=== PATIENT | female | born 2005 | race Caucasian/White ===

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

== ENCOUNTER 2024-07-08 04:29 | Emergency (ER) | payer OTHER, SELFPAY ==
--- NOTE | ~2024-07-08 | US_ITS ---
CLINICAL HISTORY: 22 weeks with abdominal cramps no heart rate OB Ultrasound Transabdominal Comparison: None Findings: Estimated gestational age by today's ultrasound: 22 weeks and 4 days. Estimated date of delivery by today's ultrasound: 11/07/2024. Previously established gestational age: 22 weeks and 5 days. Biometrics: BPD: 22 weeks and 2 days HC: 22 weeks and 2 days AC: 23 weeks and 5 days FL: 21 weeks and 5 days EFW: 523 g, percentile 40th. Cardiac activity: 144 bpm. Placenta is anterior. No demonstrated evidence of previa or abruption. Closed cervix , normal in length. AVA: Grossly within normal limits. IMPRESSION: 1. Single intrauterine gestation estimated at 22 weeks and 4 days by today's ultrasound criteria. This document has been electronically signed by: Pawel Cano MD on 07/08/2024 06:26:46
[2024-07-08 04:44] VITALS: BP 124/85; PULSE 102; RESP 16; TEMP 36.8; O2SAT 99; BMI 36.1
[2024-07-08 04:49] VITALS: BP 124/85; PULSE 102; RESP 16; TEMP 36.8; O2SAT 98
--- NOTE | 2024-07-08 05:16 | ED_ITS ---
HPI - General Adult General Chief complaint: Back Pain/Injury Stated complaint: lower back pain, 22 wks Time Seen by Provider: 07/08/24 05:22 Source: patient and family Mode of arrival: ambulatory Limitations: no limitations History of Present Illness ED Provider: DR. Solitario HPI narrative: 18-year-old female about 22 weeks reportedly has on significant care at [facility], presented with 2 hours of intermittent back pain and feels cramps and tightness in her abdomen, no vaginal bleed, no nausea, no vomiting, no dysuria, no hematuria. Patient feels the baby is moving last today, unable to obtain heart rate in the ED. Related Data Allergies Allergy/AdvReac Type Severity Reaction Status Date / Time peanut Allergy Anaphylaxis Verified 07/08/24 04:47 Review of Systems 2 Review of Systems: All other systems are reviewed and are negative Constitutional: Reports as per HPI and Reports no additional constitutional complaints Eyes: Reports as per HPI and Reports no additional eye complaints Reports system reviewed and no additional complaints, except as documented Cardiovascular: Reports as per HPI and Reports no additional cardiovascular complaints Respiratory: Reports as per HPI and Reports no additional respiratory complaints Gastrointestinal: Reports as per HPI and Reports no additional gastrointestinal complaints Genitourinary: Reports no additional female genitourinary complaints Musculoskeletal: Reports no additional musculoskeletal complaints Skin/Breast: Reports system reviewed and no additional complaints, except as docu Psychiatric: Reports no additional psychiatric complaints Endocrine: Reports no additional endocrine complaints Hematologic/Lymphatic: Reports no additional hematologic/lymphatic complaints Allergic/Immunologic: Reports no additional allergic/immunologic complaints Reports system reviewed and no additional complaints, except as documented and Reports Abnormal speech present [facility] Social History Social History Smoked in Last 30 Days: No Use of substances other than those prescribed or required for medical reasons: No Advance Directives: No Advance Directives Information Provided: Yes Patient : Yes Physical Exam ED Vital Signs: Vital Signs - 24 hr 07/08/24 04:44 07/08/24 04:49 Temperature 98.3 F 98.3 F Pulse Rate 102 H 102 H Respiratory Rate 16 16 Blood Pressure 124/85 124/85 Pulse Oximetry 99 98 Oxygen Delivery Method Room Air Room Air BMI result Body Mass Index 36.1 Vital signs have been reviewed and appear to be correct. Blood pressure elevated. Heart rate normal. Respiratory rate normal. Temperature normal. Oxygen saturation normal. Appearance: Alert. Oriented X3. No acute distress. Head: Normal external exam. Normocephalic. Atraumatic. No Jane signs noted. No raccoon eyes noted Eyes: PERRLA. EOMI. Conjunctiva and sclera normal. Eyelids normal. ENT: TM's Normal. Pharynx normal. Uvula midline. Moist mucous membranes. No trismus noted. No drooling noted. No muffled voice noted. Neck: Normal inspection. Neck supple. FROM. No adenopathy. Thyroid Normal. No meningeal signs. No neck mass noted. CVS: Normal heart rate and rhythm. Heart sound normal. No murmurs noted. Pulses normal throughout. Respiratory: No respiratory distress. Painless inspiration. Breath sounds normal. No wheezes/rales/rhonchi noted. Chest nontender. No accessory muscle usage noted or decreased air movement noted. Abdomen: Soft and nontender. Bowel sounds normal in all 4 quadrants. No distention noted. No organomegaly noted. No visible injury noted. Pelvic exam: No vaginal bleeding, no cervical dilatation, patient will get pelvic ultrasound. Back: Bilateral CVA tenderness. Full range of motion noted. Skin: Skin warm and dry. Normal skin color. Normal skin turgor. No rashes/lesions/lacerations noted. Extremities: No lower extremity edema. Extremities exhibit normal range of motion. Extremities nontender. Neuro: Oriented X 3. Cranial nerve exam: II-XII are grossly intact No motor deficit. No sensory deficit. Reflexes normal. Course Reevaluation(s) Reevaluation #1: 18-year-old female 22 weeks follow at [facility] for her care, with bilateral pyelonephritis leukocytosis with a left shift, patient will receive 1st dose of ceftriaxone, the case was discussed with at [facility] at [facility] and accepted the patient. The patient will be transferred to [facility] for further management accepted by . Time: 06:21 Medications Administered Discontinued Medications Generic Name Dose Route Start Last Admin Trade Name Freq PRN Reason Stop Dose Admin Acetaminophen 650 mg 07/08/24 05:09 07/08/24 05:21 Acetaminophen 325 Mg Tablet PO 07/08/24 05:10 650 mg ONCE ONE Administration Medical Decision Making Differential Diagnosis Differential Diagnoses: The differential diagnosis associated with the presentation includes (UTI, pyelonephritis, ABO Rh incompatibility, demise.) Admission/Observation Consideration of admission/observation: Escalation of care including admission/observation considered Consult Healthcare Provider Management of the patient was discussed with: Veneer Sheet Repairer (Dr. Padilla at [facility].) Lab Data MDM Lab Attestation statement: I reviewed the patient's lab results. 07/08/24 05:22 07/08/24 05:21 Labs: Lab Results 07/08/24 07/08/24 Range/Units 05:21 05:22 WBC 15.2 H (4.8-10.8) X10*3/uL RBC 4.03 L (4.20-5.50) X10*6/uL Hgb 12.3 (12.0-16.0) g/dl Hct 34.4 L (37.0-47.0) % MCV 85.4 (80.0-98.0) fL MCH 30.5 (27.0-33.0) pg MCHC 35.8 H (31.0-35.0) g/dl RDW 12.3 (11.0-16.0) % Plt Count 175 (160-400) X10*3/uL MPV 11.4 (9.4-12.3) fL Immature Gran % (Auto) 1.1 H (0.0-0.4) % Neut % (Auto) 76.8 H (45-73) % Lymph % (Auto) 13.9 L (20-40) % Parke % (Auto) 6.6 (2-11) % Eos % (Auto) 1.3 (0-4) % Baso % (Auto) 0.3 (0-2) % Lymph # (Auto) 2.1 (1.2-4.9) X10*3/uL Parke # (Auto) 1.0 (0.1-1.2) X10*3/uL Eos # (Auto) 0.2 (0.0-0.4) X10*3/uL Baso # (Auto) 0.0 (0.0-0.2) X10*3/uL Abs Immat Gran (auto) 0.16 H (0.00-0.03) X10*3/uL Absolute Neuts (auto) 11.7 H (2.0-8.3) x10*3/uL Absolute Nucleated RBC 0.000 (0.0-0.012) X10*3/uL Nucleated RBC % (auto) 0.0 (0.0-0.2) /100WBC Sodium 136 (135-145) mmol/L Potassium 3.8 (3.3-5.1) mmol/L Chloride 108 (96-108) mmol/L Carbon Dioxide 19 L (22-29) mmol/L Anion Gap 13 (12-20) BUN < 3 L (9-16) mg/dL Creatinine 0.53 (0.5-1.4) mg/dL Estim Creat Clear Calc 143.9 Estimated GFR > 60 Random Glucose 98 (60-115) mg/dL Calcium 9.3 (8.4-10.2) mg/dL Beta HCG, Quant 39696 mIU/mL Urine Color Yellow Urine Appearance Clear Urine pH 7.0 (5.0-9.0) Ur Specific [place] 1.010 (1.005-1.025) Urine Protein 30 (1+) H (Neg-Trace) mg/dL Urine Glucose (UA) 100 H (Negative) mg/dL Urine Ketones Negative (Negative) mg/dL Urine Blood Moderate (2+) H (Negative) Urine Nitrite Negative (Negative) Ur Leukocyte Esterase Large (3+) H (Negative) Urine RBC 11-20 H (0-2) /HPF Urine WBC 21-50 H (0-5) /HPF Ur Squamous Epith Cells 0-2 (0-2) /HPF Urine Bacteria 1+ (None Seen) Hyaline Casts 0-2 (0-2) /LPF Independent Interpretation I performed an independent interpretation of an: Ultrasound (1. Single intrauterine gestation estimated at 22 weeks and 4 days by today's ultrasound criteria.) Radiology Impression Discussion of test interpretation with radiology: I have reviewed the radiologist's reading. Discharge Plan Discharge Clinical Impression: Pyelonephritis, Second trimester , Back pain Patient Disposition: General Acute Hospital Transfer Details: [facility]. Print Language: Swedish
[2024-07-08] MEDS: Acetaminophen 325 MG TABLET 650 MG PO (05:21)
--- NOTE | 2024-07-08 05:23 | MHC.EDTECH ---
Urine sample,labs and RH drawn and sent to lab, applied blood band to right wrist
[2024-07-08 05:29] LABS: MANUAL DIFF FLAG NO
[2024-07-08 05:30] LABS: Basophils Percent Auto 0.3 % (0-2); Eosinophils Absolute Auto 0.2 X10*3/uL (0.0-0.4); Eosinophils Percent Auto 1.3 % (0-4); Hematocrit 34.4 % (37.0-47.0); Hemoglobin 12.3 g/dl (12.0-16.0); Imm Gran Abs Auto 0.16 X10*3/uL (0.00-0.03); Imm Gran Pct Auto 1.1 % (0.0-0.4); Lymphocytes Absolute Auto 2.1 X10*3/uL (1.2-4.9); Lymphocytes Percent Auto 13.9 % (20-40); Mean Corpuscular HGB Conc 35.8 g/dl (31.0-35.0); Mean Corpuscular Hemoglobin 30.5 pg (27.0-33.0); Mean Corpuscular Volume 85.4 fL (80.0-98.0); Mean Platelet Volume 11.4 fL (9.4-12.3); Monocytes Percent Auto 6.6 % (2-11); Neutrophils Absolute Auto 11.7 x10*3/uL (2.0-8.3); Neutrophils Percent Auto 76.8 % (45-73); Platelet Count 175 X10*3/uL (160-400); Red Blood Count 4.03 X10*6/uL (4.20-5.50); Red Cell Distribution Width 12.3 % (11.0-16.0); White Blood Count 15.2 X10*3/uL (4.8-10.8)
[2024-07-08 05:31] LABS: Appearance Urine Clear; Color Urine Yellow; Glucose Urine UA 100 mg/dL (Negative); Leukocyte Esterase Urine Large (3+) (Negative); Nitrite Urine Negative (Negative); UMIC TRIGGER UACC YES; Urine Blood Moderate (2+) (Negative); Urine Ketones Negative (Negative); Urine Protein 30 (1+) mg/dL (Neg-Trace)
[2024-07-08 05:56] LABS: Anion Gap 13 (12-20); Blood Urea Nitrogen < 3 mg/dL (9-16); Calcium 9.3 mg/dL (8.4-10.2); Carbon Dioxide 19 mmol/L (22-29); Chloride 108 mmol/L (96-108); Creatinine Clr Calc Pharmacy 143.9; Estimated Glomerular Filt Rate > 60; Glucose Random 98 mg/dL (60-115); Potassium 3.8 mmol/L (3.3-5.1); Sodium 136 mmol/L (135-145)
[2024-07-08 06:02] LABS: Bacteria Urine 1+ (None Seen); Hyaline Casts Urine 0-2 /LPF (0-2); Squamous Epithelial Cell Urine 0-2 /HPF (0-2); UACC Culture Trigger YES; WBC Urine 21-50 /HPF (0-5)
[2024-07-08 06:15] LABS: HCG Quantitative 32567 mIU/mL
[2024-07-08] MEDS: cefTRIAXone sodium 1 GM VIAL IVPUSH (06:31)
--- NOTE | 2024-07-08 06:44 | PC.NURSE ---
Addendum entered by Raina Gregg RN 07/08/24 06:52: Called nurse to nurse report, spoke with Liz AMADO from [facility]. Original Note: pt 18 yo female from home with complaint of intermittent lower back pain. Pt is 22 weeks and states along with the back pain she is also experiencing stomach cramping/tightness and the baby moving less than usual. Pt states this is her fourth and she has no living children.Pt denies any vaginal bleeding, nausea, vomiting, dysuria, and hematuria. Pt is a&o x4 speaking in full clear sentences and ambulates with steady gait. Pt is being transferred to [facility] for further care of pyelonephritis. Pt has 20G IV in LAC and has received 1st dose of ceftriaxone.
[2024-07-08 07:10] VITALS: BP 112/76; PULSE 93; RESP 20; TEMP 36.8; O2SAT 99
== END 2024-07-08 08:03 | disposition short-term general hospital (02) ==
PROVIDERS: Emergency Provider Emergency Medicine; PCP Pediatrics
DX: O23.02 Infections of kidney in pregnancy, second trimester (principal); B95.4 Other streptococcus as the cause of diseases classified elsewhere; Z3A.22 22 weeks gestation of pregnancy
CPT/HCPCS: 36415; 76815; 80048; 81001; 81003; 84702; 85025; 86900; 86901; 87086; 87088; 96374; 99284; 99285; J0696

== ENCOUNTER → 2024-07-08 05:14 | Outpatient (BNV) | payer OTHER, SELFPAY | PROVIDERS: Emergency Provider Emergency Medicine; PCP Pediatrics; Visit Provider Radiology Vascular & Interventional Radiology | DX: O26.892 Other specified pregnancy related conditions, second trimester (principal); R10.9 Unspecified abdominal pain; Z3A.22 22 weeks gestation of pregnancy | CPT/HCPCS: 76815 ==

== ENCOUNTER 2024-09-15 00:11 | Emergency (ER) | payer OTHER, SELFPAY ==
[2024-09-15 00:14] VITALS: BP 137/75; PULSE 111; RESP 18; TEMP 36.8; O2SAT 98; BMI 38.8
[2024-09-15 00:30] LABS: Hematocrit 33.5 % (37.0-47.0); Hemoglobin 11.9 g/dl (12.0-16.0); Mean Corpuscular HGB Conc 35.5 g/dl (31.0-35.0); Mean Corpuscular Hemoglobin 29.9 pg (27.0-33.0); Mean Corpuscular Volume 84.2 fL (80.0-98.0); Mean Platelet Volume 11.9 fL (9.4-12.3); Platelet Count 169 X10*3/uL (160-400); Red Blood Count 3.98 X10*6/uL (4.20-5.50); White Blood Count 11.1 X10*3/uL (4.8-10.8)
[2024-09-15 00:47] LABS: Alanine Aminotransferase 19 U/L (0-31); Albumin Level 3.8 g/dL (3.5-5.0); Alkaline Phosphatase 150 U/L (39-117); Anion Gap 15 (12-20); Aspartate Amino Transferase 27 U/L (5-31); Bilirubin Total 0.3 mg/dL (0.0-1.0); Blood Urea Nitrogen 3 mg/dL (9-16); Calcium 9.4 mg/dL (8.4-10.2); Carbon Dioxide 19 mmol/L (22-29); Chloride 108 mmol/L (96-108); Creatinine Clr Calc Pharmacy 144.7; Estimated Glomerular Filt Rate > 60; Glucose Random 94 mg/dL (60-115); Potassium 3.6 mmol/L (3.3-5.1); Sodium 138 mmol/L (135-145); Total Protein 6.8 g/dL (6.5-8.0)
[2024-09-15 01:41] VITALS: BP 113/76; PULSE 100; RESP 16; TEMP 36.7; O2SAT 98
[2024-09-15] MEDS: ondansetron HCL 4 MG/2 ML VIAL IVPUSH (02:09)
[2024-09-15] MEDS: 0.9 % Sodium Chloride 1,000 ML 999 ML IV (02:09)
[2024-09-15] MEDS: Sucralfate Oral Suspension 1 GM/10 ML ORAL.SUSP PO (02:09)
--- NOTE | 2024-09-15 02:19 | PC.NURSE ---
RN placed a line in pts Right AC #20. pt medicated per mar orders.
[2024-09-15 02:34] LABS: HCG Quantitative 16334 mIU/mL
--- NOTE | 2024-09-15 03:47 | ED_ITS ---
HPI - General Adult General Chief complaint: Nausea/Vomiting/Diarrhea Stated complaint: vomiting Time Seen by Provider: 09/15/24 01:41 Source: patient Limitations: no limitations History of Present Illness ED Provider: Lakshmi Landaverde PA-C HPI narrative: 18-year-old female who is currently 32 weeks , presents with epigastric discomfort. Patient states she was seen by nurse staff industrial today, she was feeling pressure in her lower abdomen. She was assessed at [facility], she was safely discharged and we will be following up with them 09/19. Patient states she has a burning sensation within the epigastric region, it is nonradiating. Associated nausea with 1 episode of vomiting. Patient states she vomited blood. Denies coffee-ground emesis, ongoing epigastric pain, fever, diarrhea. No sick contacts with similar symptoms. Related Data Previous Rx's ?Medication ?Instructions ?Recorded ondansetron HCl 4 mg tablet 4 mg PO Q8H PRN nausea and 09/15/24 vomiting #10 tabs sucralfate 100 mg/mL oral 10 ml PO QID PRN indigestion #300 09/15/24 suspension (Carafate) mL Allergies Allergy/AdvReac Type Severity Reaction Status Date / Time peanut Allergy Anaphylaxis Verified 09/15/24 00:18 [facility] Social History Social History Smoked in Last 30 Days: No Use of substances other than those prescribed or required for medical reasons: No Advance Directives: No Advance Directives Information Provided: No Patient : Yes Physical Exam ED Vital Signs: Vital Signs - 24 hr 09/15/24 00:14 09/15/24 01:41 Temperature 98.3 F 98.1 F Pulse Rate 111 H 100 Respiratory Rate 18 16 Blood Pressure 137/75 113/76 Pulse Oximetry 98 98 Oxygen Delivery Method Room Air Room Air BMI result Body Mass Index 38.8 Course Reevaluation(s) Reevaluation #1: P.o. challenge Reevaluation #2: Ate, drank, feels well, we will send with home care instructions for GERD in the use of Carafate and Zofran. Medications Administered Discontinued Medications Generic Name Dose Route Start Last Admin Trade Name Freq PRN Reason Stop Dose Admin Sodium Chloride 1,000 mls @ 999 mls/hr 09/15/24 01:45 09/15/24 02:09 Ns IV 09/15/24 02:45 999 mls/hr .Q1H1M KURT Administration Ondansetron HCl 4 mg 09/15/24 01:42 09/15/24 02:09 Ondansetron Hcl 4 Mg/2 Ml Vial IVPUSH 09/15/24 01:43 4 mg ONCE ONE Administration Sucralfate 1 gm 09/15/24 01:53 09/15/24 02:09 Sucralfate Oral Suspension 1 Gm/10 Ml Oral.Susp PO 09/15/24 01:54 1 gm ONCE ONE Administration Medical Decision Making Medical Decision Making [facility] Narrative: 18-year-old female who is currently 32 weeks , presents with epigastric discomfort. Patient states she was seen by nurse staff industrial today, she was feeling pressure in her lower abdomen. She was assessed at [facility], she was safely discharged and we will be following up with them 09/19. Patient states she has a burning sensation within the epigastric region, it is nonradiating. Associated nausea with 1 episode of vomiting. Patient states she vomited blood. Denies coffee-ground emesis, ongoing epigastric pain, fever, diarrhea. No sick contacts with similar symptoms. Problem: History: Per patient I have considered the following differential diagnoses: Lianna-Alex tear, upper GI bleed, peptic ulcer disease, perforated peptic ulcer, gastritis/GERD, biliary colic, cholecystitis, pancreatitis Plan: The patient reports an episode of blood in her vomit, I am not appreciating active symptoms. Screening labs were obtained from triage and they are stable. Patient is already asking to eat. Her exam was benign. She has no peritoneal signs to suggest a perforated peptic ulcer, she has no focal right upper quadrant discomfort to suggest underlying biliary pathology. We will be giving fluids, Zofran and Carafate. I have independently reviewed the following tests: Labs: Slight leukocytosis at 11, no left shift, no electrolyte abnormality, Lab Data 09/15/24 00:25 09/15/24 00:25 Labs: Lab Results 09/15/24 Range/Units 00:25 WBC 11.1 H (4.8-10.8) X10*3/uL RBC 3.98 L (4.20-5.50) X10*6/uL Hgb 11.9 L (12.0-16.0) g/dl Hct 33.5 L (37.0-47.0) % MCV 84.2 (80.0-98.0) fL MCH 29.9 (27.0-33.0) pg MCHC 35.5 H (31.0-35.0) g/dl RDW 13.0 (11.0-16.0) % Plt Count 169 (160-400) X10*3/uL MPV 11.9 (9.4-12.3) fL Absolute Nucleated RBC 0.000 (0.0-0.012) X10*3/uL Nucleated RBC % (auto) 0.0 (0.0-0.2) /100WBC Sodium 138 (135-145) mmol/L Potassium 3.6 (3.3-5.1) mmol/L Chloride 108 (96-108) mmol/L Carbon Dioxide 19 L (22-29) mmol/L Anion Gap 15 (12-20) BUN 3 L (9-16) mg/dL Creatinine 0.55 (0.5-1.4) mg/dL Estim Creat Clear Calc 144.7 Estimated GFR > 60 Random Glucose 94 (60-115) mg/dL Calcium 9.4 (8.4-10.2) mg/dL Total Bilirubin 0.3 (0.0-1.0) mg/dL AST 27 (5-31) U/L ALT 19 (0-31) U/L Alkaline Phosphatase 150 H (39-117) U/L Total Protein 6.8 (6.5-8.0) g/dL Albumin 3.8 (3.5-5.0) g/dL Beta HCG, Quant 32528 mIU/mL Discharge Plan Discharge Clinical Impression: Dyspepsia Patient Disposition: Home, Self-Care Instructions: GERD (Gastroesophageal Reflux Disease) (ED), Epigastric Pain (ED) Additional Instructions: All of your screening labs were normal, you have been treated for suspect acid reflux/indigestion. See home care instructions. There are numerous triggers that can cause your symptoms, some common food triggers include fatty /greasy food, spicy food, acidic food, mint, caffeine, anything carbonated. Try not to eat 3 hours before bed, this will help to deter symptoms. Uses Zofran as needed for nausea, use the Carafate as needed for upper abdominal discomfort. Keep your follow up appointment with your nurse staff industrial scheduled for this SundaySeptember 19. Prescriptions: New sucralfate [Carafate] 100 mg/mL suspension 10 ml PO QID PRN (Reason: indigestion) Qty: 300 0RF Rx Instructions: swish in mouth and swallow; use after food/drink ondansetron HCl 4 mg tablet 4 mg PO Q8H PRN (Reason: nausea and vomiting) Qty: 10 0RF Print Language: [place]
[2024-09-15 04:15] VITALS: BP 101/61; PULSE 93; RESP 16; TEMP 36.8; O2SAT 99
[2024-09-15 04:26] VITALS: BP 101/61; PULSE 93; RESP 16; TEMP 36.8; O2SAT 99
== END 2024-09-15 04:28 | disposition home or self-care (01) ==
PROVIDERS: Physician Assistant Medical; Emergency Provider Emergency Medicine; PCP Pediatrics
DX: O26.893 Other specified pregnancy related conditions, third trimester (principal); R10.13 Epigastric pain; Z3A.32 32 weeks gestation of pregnancy
CPT/HCPCS: 36415; 80053; 84702; 85027; 96361; 96374; 99284; J2405